=== PATIENT | male | born 1960 | race Caucasian/White ===

== ENCOUNTER 2020-08-10 10:09 | Emergency (ER) | payer OTHER, SELFPAY ==
--- NOTE | ~2020-08-10 | XR_ITS ---
EXAMINATION: XR lumbar spine 2-3V DATE: 08/10/2020 11:11 INDICATION: Low back pain TECHNIQUE: Anteroposterior and lateral views of the lumbar spine, and cone-down lateral view of the l umbosacral junction were obtained. COMPARISON: None. FINDINGS: There is no fracture, dislocation, or subluxation. The vertebral body heights are maintaine d. There is mild loss of intervertebral disc space height at L5-S1. Small degenerative osteophytes pr oject from the anterior endplates of multiple vertebral bodies. IMPRESSION: 1. Mild lumbar spondylosis without acute osseous abnormality. Reviewed, dictated and finalized at location A. L[employer]IES OFFICER
[2020-08-10 10:21] VITALS: BP 157/88; PULSE 88; RESP 14; TEMP 36.3; O2SAT 99
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
[2020-08-10] MEDS: KETOROLAC (*BKC) 60 MG/2 ML VIAL IM (12:30)
[2020-08-10 13:11] VITALS: RESP 16
== END 2020-08-10 13:12 | disposition home or self-care (01) ==
PROVIDERS: Emergency Provider Emergency Medicine
DX: S39.012A Strain of muscle, fascia and tendon of lower back, initial encounter (principal); M47.816 Spondylosis without myelopathy or radiculopathy, lumbar region; V43.52XA Car driver injured in collision with other type car in traffic accident, initial encounter
CPT/HCPCS: 72100; 96372; 99283; J1885

== ENCOUNTER 2021-05-05 13:32 | Emergency (ER) | payer OTHER, SELFPAY ==
[2021-05-05 13:41] VITALS: BP 143/82; PULSE 84; RESP 20; TEMP 36.9; O2SAT 98
--- NOTE | 2021-05-05 13:47 | ED.GENADULT ---
HPI - General Adult General Chief complaint: Skin/Abscess/Foreign Body Stated complaint: Lt leg pain Source: patient Mode of arrival: ambulatory Limitations: no limitations History of Present Illness HPI narrative: Pleasant 61 y/o male. PMHx HTN. Presents to [facility] today with acute complaints of LT lower leg infection, erythema, and soft tissue swelling for the past 3 days. Pt reports to have initially noted itchiness to site, bit had scratched area while crawling under a crawl space , and now manifestations are worsening. No fever, chills. No bony or joint pain. No loss of lower extremity control or sensation. He is non-diabetic. No additional acute complaints of illness have been relayed upon exam. Related Data Home Medications Medication Instructions Recorded Confirmed dexlansoprazole [Dexilant] mg 08/10/20 hydrochlorothiazide 08/10/20 Allergies Allergy/AdvReac Type Severity Reaction Status Date / Time No Known Allergies Allergy Verified 05/05/21 13:55 Review of Systems Review of Systems: CONSTITUTIONAL: Denies fever, chills, sweats. EYES: Denies visual changes, redness, discharge. ENT: Denies rhinorrhea, congestion, sore throat, otalgia. CARDIOVASCULAR: Denies chest pain, palpitations, edema. RESPIRATORY: Denies dyspnea, wheezing, cough GASTROINTESTINAL: Denies abdominal pain, nausea, vomiting, diarrhea. GENITOURINARY: Denies dysuria, hematuria, abnormal discharge SKIN: Itching and wound LLE. MUSCULOSKELETAL: Denies acute back pain, joint pain, or myalgia. NEUROLOGIC: Denies numbness, or focal weakness. PSYCHIATRIC: Denies anxiety or depression. All systems reviewed & are unremarkable except as noted in HPI and below PMFSH Past Medical History Medical History Healthy adult male Surgical History Surgical History No history of previous surgery Social History Social History Smoking status: Never smoker Exam Narrative: GENERAL: This is a well-nourished, well-developed patient, in no apparent distress. HEAD: normocephalic, atraumatic. EYES: Sclera clear/white. EARS: External ears normal. NOSE: External nose normal. THROAT: Mucous membranes moist, posterior pharynx clear. NECK: Neck supple, non-tender without lymphadenopathy, masses or thyromegaly. CARDIOVASCULAR: Regular rate and rhythm without murmurs, gallops, or rubs. Strong LLE pulses. RESPIRATORY: Clear to auscultation. Breath sounds equal bilaterally. No wheezes, rales, or rhonchi. GASTROINTESTINAL: Abdomen soft, non-tender, nondistended. SKIN: warm, intact. With 2 cm area of erythema and soft tissue irritation overlying LT mid-garrison. There is a 1 cm scab and minimal yellow discharge to site. No fluctuance or deep tissue injury. NEURO: No focal neurologic deficits. Steady gait. Sensation intact LLE all sites. EXTREMITIES: No bony tenderness LLE. Normal range of motion. No edema. No calf tenderness. Negative Homans. Course Course Emergency Course: -61 y/o male. PMHx HTN. -Presents concerned for LLE wound. -Non-diabetic. -Physical exam consistent with stable Cellulitis. -Proceed accordingly. Vital Signs Vital signs: Vital Signs Temperature 36.9 C 05/05/21 13:41 Pulse Rate 84 05/05/21 13:41 Respiratory Rate 20 05/05/21 13:41 Blood Pressure 143/82 H 05/05/21 13:41 Pulse Oximetry 98 05/05/21 13:41 Temperature 36.9 C 05/05/21 13:41 Pulse Rate 84 05/05/21 13:41 Respiratory Rate 20 05/05/21 13:41 Blood Pressure 143/82 H 05/05/21 13:41 Pulse Oximetry 98 05/05/21 13:41 The patient has been informed that they may have pre-hypertension or Hypertension based on a BP reading in the clinic. It is recommended that the patient call the primary care provider listed on their discharge instructions or a
== END 2021-05-05 13:54 | disposition home or self-care (01) ==
PROVIDERS: Emergency Provider Nurse Practitioner Adult Health
DX: L03.116 Cellulitis of left lower limb (principal)
CPT/HCPCS: 99213; G0463